=== PATIENT | male | born 1970 | race Caucasian/White ===

== ENCOUNTER → 2020-04-18 13:32 | Outpatient (CLI) | payer OTHER, MEDICAID, SELFPAY ==
[2020-04-18 14:30] LABS: COVID19 -Nasal RAPID Negative (Negative)
== END ==
PROVIDERS: Visit Provider Physician Assistant
DX: Z20.822 Contact with and (suspected) exposure to COVID-19 (principal)
CPT/HCPCS: 87635

== ENCOUNTER 2020-04-21 08:29 | Day surgery (SDC) | payer OTHER, MEDICAID, SELFPAY ==
[2020-04-19 07:55] VITALS: BMI 23.7
[2020-04-19 14:54] VITALS: BMI 23.7
[2020-04-21] VITALS (8 sets, daily range): BP systolic 95–115; BP diastolic 59–76; PULSE 56–87; RESP 12–18; TEMP 36.1–36.5; O2SAT 95–99; BMI 23.7
[2020-04-21] MEDS: LACTATED RINGERS 1,000 ML 42 ML IV ×2 (09:02→11:32)
[2020-04-21] MEDS: ACETAMINOPHEN 325 MG TABLET 975 MG PO (09:02)
--- NOTE | 2020-04-21 09:11 | PM.PREOP ---
Pre-operative Note COVID-19 COVID-19 status: Negative Result date/Date tested (Pos, Neg/Pending): 04/18/20 Interval Note History & Physical reviewed/Exam performed by Physician: Yes Changes to H&P: No
[2020-04-21] MEDS: CEFAZOLIN 2 GM/100 ML FROZ.PIGGY IV (10:00)
--- NOTE | 2020-04-21 10:27 | SUR.OPER ---
Prone on spine table, head in foam head support, padded chest and pelvic supports, gel pad at knees, lower legs supported by pillows; nipples, genitalia and toes free of pressure, arms secured on foam padded arm boards at <90 degrees abduction. Tape over blanket at thigh secured to table.
[2020-04-21] MEDS: THROMBIN (RECOMBINANT) 5,000 UNIT VIAL 5000 UNIT TOP (10:41)
[2020-04-21] MEDS: SODIUM CHLORIDE 0.9% 1,000 ML, GENTAMICIN 80 MG IRR (10:41)
[2020-04-21] MEDS: BUPIVACAINE 0.25% (PF) 8 ML, fentaNYL 100 MCG INJ (10:42)
[2020-04-21] MEDS: VANCOMYCIN 1,000 MG VIAL 1000 MG TOP (10:42)
--- NOTE | 2020-04-21 11:42 | PM.OP.1 ---
Operative Date/Time/Diagnoses Date of procedure: 04/21/20 Time of procedure: 11:42 Pre-op diagnosis: Lumbar disc herniation with radiculopathy Post-op diagnosis: same Procedure & Clinicians Procedure: Left L4-5 diskectomy Use of microscope Placement of epidural catheter Same procedure as scheduled: Yes Indications: [age] year old male with intractable pain from a lumbar disc herniation. They had failed conservative management and requested operative intervention. Risks and benefits of surgery were discussed and appropriate consents were obtained. Surgeon: Ian Ness [place]drinier Wire Weaver: Zabrina Gastelum Anesthesia Type: General Operative Notes Findings: None Closure Type: primary Specimen(s): none sent Estimated Blood Loss (mL): 10 Procedure in detail: Patient was brought to the operating room and intubated on the table. A time-out was performed. There were rolled over the well-padded prone position on the Parish table. The back was prepped and draped in standard sterile fashion. Preoperative antibiotics were given. Using fluoroscopy, a 3 cm incision was made to the well marked left of the midline at the L4-5 level. We used Bovie to come down to and split the fascia. We then used the [employer] MaXcess dilators with fluoroscopy and then opened our retractors. The soft tissue was cleared off with Bovie, a marker was placed, an x-ray was taken to confirm positioning. We then brought in the microscope. A combination of high-speed bur and Kerrison were used to perform a left-sided hemilaminotomy and hemifacetectomy. We carefully retracted the dura and expose the disc. This was cleared with bipolar. A scalpel used to perform an annulotomy and a pituitary was used to perform the diskectomy. There was a large left-sided component as well as a fair amount of midline disc herniation that had to be removed. The ball probe was swept underneath the dura along the disc to make sure there were no further loose fragments. This was also placed into the disc and moved around to make sure there were no further loose fragments. Once everything was adequately decompressed, the wound was copiously irrigated. An epidural catheter was filled with 100 mcg of fentanyl and 8 mL of 0.25% Marcaine. The dura was carefully depressed under the laminotomy site and the catheter was advanced 6 cm cephalad. The retractor was removed and the fascia was closed. The epidural catheter was then injected without resistance and removed. Vancomycin powder was placed in the wound. Superficial and skin were closed. Sterile dressing was placed. The patient was then rolled over, transferred to the stretcher, and brought to recovery room without complications. Complications: none Post-operative Condition: stable Disposition: PACU Plan for aftercare: Outpatient. Limited activity for 2 weeks and then may increased activity as tolerated and start physical therapy.
[2020-04-21] MEDS: OXYCODONE IR 5 MG TABLET PO (12:29)
--- NOTE | 2020-04-21 12:35 | SUR.PHASEII ---
Addendum entered by Kenyetta Ponce R.N. 04/21/20 12:52: Pt ready for d/c but could not stand, both knees buckled when he went to stand. Pt placed back in bed, Dr. Ness called, informed. He stated the epidural must still be in effect. Stated we could try in 30 minutes to see if he could stand, then he could go home if he was able to bear weight when up. Original Note: Pt c/o pain, medicated with percolone, 1 tab. dressing remained c/d/i. Pt tolerated apple sauce and water. Pt ready to go, called, d/c instructions discussed with and pt, both voiced an understanding. Pt dressed and left when ready and left in stable condition.
--- NOTE | 2020-04-21 13:24 | SUR.PHASEII ---
Pt reassessed, able to stand and transfer to chair on own. Dressed with assist of [employer].
--- NOTE | 2020-04-21 13:26 | SUR.PHASEII ---
Pt left unit in stable condition.
== END 2020-04-21 13:26 | disposition home or self-care (01) ==
PROVIDERS: Referring Provider Orthopaedic Surgery; Visit Provider Orthopaedic Surgery
PROC: (CPT 63030; principal; 2020-04-21 09:45)
DX: M51.16 Intervertebral disc disorders with radiculopathy, lumbar region (principal); Z98.890 Other specified postprocedural states; F17.210 Nicotine dependence, cigarettes, uncomplicated
CPT/HCPCS: 63030; J0330; J0690; J1100; J1885; J2250; J2405; J2704; J3010